=== PATIENT | male | born 1995 | race Caucasian/White ===

== ENCOUNTER 2020-03-10 01:12 | Outpatient (CLI) | payer OTHER, SELFPAY ==
--- NOTE | 2020-03-10 | DI.US_ITS ---
EXAM: US SCROTUM CLINICAL HISTORY: LT TESTICULAR PAIN, EPIDIDYMAL SWELLING,N50.812 TECHNIQUE: Scrotal ultrasound was performed utilizing scanning with high-frequency transducer. COMPARISON: No exams were available for comparison FINDINGS: The testes are normal in size and shape and are normal in echotexture. There is normal vascular flow of the testes on Doppler evaluation and flow is symmetrical. No testicular mass identified. The epididymi are unremarkable in appearance with normal vascular flow. There is 4 millimeter incide ntal right epididymal spermatocele. There is no evidence of a varicocele or hydrocele. IMPRESSION: Normal scrotal ultrasound. RADIATION DOSE DELIVERED: Total DLP Total DLP
== END 2020-03-10 01:32 ==
PROVIDERS: PCP Family Medicine; Visit Provider Family Medicine
DX: N50.812 Left testicular pain (principal)
CPT/HCPCS: 76870